=== PATIENT | female | born 1990 | race American Indian/Alaskan Native ===

== ENCOUNTER 2019-04-21 21:37 | Emergency (ER) | payer SELFPAY ==
[2019-04-21] MEDS ORDERED: ATIVAN IM PRN (21:58)
[2019-04-21] MEDS ORDERED: HALDOL IM PRN (21:58)
--- NOTE | 2019-04-21 22:07 | Emergency Department Report ---
ED General Adult HPI - General Chief complaint: Psych Stated complaint: O.D. ETOH Time Seen by Provider: 04/21/19 21:58 Source: EMS (ems notes not available at time of chart dictation), RN notes reviewed Mode of arrival: Stretcher Limitations: Other (intoxication) - History of Present Illness Initial comments: This is a 28-year-old female. Has a history of reported chronic neuropathic pain, on gabapentin, does not know the dose, and depression. Patient brought to the hospital by emergency medical services. Apparently, the patient's mother stated the patient took some pills, but is not sure what she took or how much. The patient states that she wants to sleep, but denies homicidality and suicidality. She also endorses chronic radicular pain in her left lower extremity. Apparently, pill bottles were brought with the patient. They include multiple prescriptions, including Naprosyn, ranitidine, lisinopril, and diclofenac. Ranitidine 2007. lisinopril 2006. Diclofenac 2007. Naprosyn [id number], appears to be current. The patient denies headache, neck pain, chest pain, abdominal pain, shortness of breath. She indicates she is not homicidal or suicidal. She is not sure exactly what time the ingestion took place. Does not know what dose of gabapentin she took. -: Sudden Quality: other Consistency: other Improves with: other Worsens with: other - Related Data Allergies Allergy/AdvReac Type Severity Reaction Status Date / Time No Known Allergies Allergy Verified 04/21/19 21:56 ED Review of Systems ROS: Stated complaint: O.D. ETOH Other details as noted in HPI Constitutional: malaise. denies: fever Eyes: denies: eye discharge ENT: denies: epistaxis Respiratory: denies: cough Cardiovascular: denies: chest pain Musculoskeletal: arthralgia, myalgia Skin: denies: lesions Neurological: paresthesias Psychiatric: depression ED Past Medical Hx - Past Medical History Previous Medical History?: Yes Hx Psychiatric Treatment: Yes (Depression) - Surgical History Past Surgical History?: Yes Additional Surgical History: D & C - Social History Smoking Status: Current Every Day Smoker Substance Use Type: None ED Physical Exam - General Limitations: Other (intoxication) General appearance: alert, appears intoxicated - Head Head exam: Present: atraumatic, normocephalic - Eye Eye exam: Present: normal appearance, EOMI, other (visual acuity intact to fing er counting, color perception, reading at a close distance). Absent: nystagmus - ENT ENT exam: Present: normal exam, normal orophraynx, mucous membranes moist, normal external ear exam - Neck Neck exam: Present: normal inspection, full ROM. Absent: tenderness, meningismus - Respiratory Respiratory exam: Present: normal lung sounds bilaterally. Absent: respiratory distress - Cardiovascular Cardiovascular Exam: Present: regular rate, normal rhythm, normal heart sounds. Absent: bradycardia, tachycardia, irregular rhythm, systolic murmur, diastolic murmur, rubs, gallop - GI/Abdominal GI/Abdominal exam: Present: soft. Absent: distended, tenderness, guarding, rebound, rigid, pulsatile mass - Extremities Exam Extremities exam: Present: normal inspection, full ROM, other (2+ pulses noted in the bilateral upper extremities. There is no long bony tenderness in the bilateral upper extremities). Absent: pedal edema - Back Exam Back exam: Present: normal inspection, full ROM. Absent: tenderness, CVA tenderness (R), CVA tenderness (L), paraspinal tenderness, vertebral tenderness - Neurological Exam Neurological exam: Present: alert, other (Extraocular movements intact. Tongue midline. No facial droop. Facial sensation intact to light touch in the V1, V2, V3 distribution bilaterally. 5 and 5 strength in 4 extremities.. Sensation is intact to light touch in 4 extremities.) - Psychiatric Psychiatric exam: Present: depressed, flat affect - Skin Skin exam: Present: warm, dry, intact, normal color. Absent: rash ED Course Vital Signs 04/21/19 04/21/19 04/22/19 21:39 21:57 00:40 Temperature 98.3 F 98 F Pulse Rate 113 H 75 Respiratory 20 18 17 Rate Blood Pressure 139/77 Blood Pressure 94/47 [Right] O2 Sat by Pulse 99 99 98 Oximetry 04/22/19 00:43 Temperature Pulse Rate 81 Respiratory 15 Rate Blood Pressure Blood Pressure 97/59 [Right] O2 Sat by Pulse 98 Oximetry - Reevaluation(s) Reevaluation #1: 04/21/19 22:23 Differential diagnosis, including not limited to: Overdose, alcohol intoxication, chronic radicular/neuropathic pain, medical clearance for psychiatric placement Assessment and plan: 28-year-old female, clinically intoxicated, no evidence of trauma, with reported history of overdose. States that she wants to go to slee p. Given intoxication, history of depression, desire to "go to sleep", we will place the patient on a 1013, as I am concerned that this may be a gesture for self-harm. Screening laboratory studies, EKG, singing waiter or waitress ordered. Psychiatric consultation has been requested. Patient cannot give an exact time of ingestion, appears to be intoxicated, at risk for aspiration, therefore, in my opinion, not a charcoal candidate. We will observe the patient in for 4-6 hours in the emergency room. Reevaluation #2: 04/21/19 23:47 Family at bedside. They indicate that they're concerned that this might be more than "just a try to go to sleep." Apparently, the patient has been having trouble with alcohol for quite a bit. The family wants the patient to get detox. Patient thus far is noncommittal regarding detox. Laboratory studies reviewed and appreciated. CK 1100 is appreciated. Has normal renal function. Muscular compartments. This does not meet criteria for rhabdomyolysis. The patient IV fluids. We will continue to observe the patient. The patient does not appear to be in any acute distress. Reevaluation #3: 04/22/19 02:07 Resting comfortably, and in no acute distress. Reevaluation #4: 04/22/19 03:26 Patient is observed for a prolonged period of time in this department without clinical decompensation. She appears unremarkable on repeat examination. The patient is medically suitable for psychiatric consultation, placement, evaluation at this time. ED Medical Decision Making - Lab Data Result diagrams: 04/21/19 22:12 04/21/19 22:12 Vital Signs 04/21/19 04/21/19 21:39 21:57 Temperature 98.3 F Pulse Rate 113 H Respiratory 20 18 Rate Blood Pressure 139/77 O2 Sat by Pulse 99 99 Oximetry Labs 04/21/19 04/21/19 04/21/19 22:07 22:07 22:12 WBC RBC Hgb Hct MCV MCH MCHC RDW Plt Count Lymph % (Auto) [place] % (Auto) Eos % (Auto) Baso % (Auto) Lymph # [place] # Eos # Baso # Seg Neutrophils % Seg Neutrophils # Sodium 148 H Potassium 3.7 Chloride 104.1 Carbon Dioxide 20 L Anion Gap 28 BUN 3 L Creatinine 0.8 Estimated GFR > 60 BUN/Creatinine Ratio 4 Glucose 99 Calcium 10.9 H Magnesium Total Creatine Kinase HCG, Qual Urine Color Straw Urine Turbidity Clear Urine pH 7.0 Ur Specific [place] 1.003 Urine Protein <15 mg/dl Urine Glucose (UA) Neg Urine Ketones Tr Urine Blood Lg Urine Nitrite Neg Urine Bilirubin Neg Urine Urobilinogen < 2.0 Ur Leukocyte Esterase Neg Urine WBC (Auto) 1.0 Urine RBC (Auto) 1.0 U Epithel Cells (Auto) 3.0 Urine Mucus Few Urine Opiates Screen Presumptive negative Urine Methadone Screen Presumptive negative Ur Barbiturates Screen Presumptive negative Ur Phencyclidine Scrn Presumptive negative Ur Amphetamines Screen Presumptive negative U Benzodiazepines Scrn Presumptive positive Urine Cocaine Screen Presumptive negative U Marijuana (THC) Screen Presumptive positive Plasma/Serum Alcohol 04/21/19 04/21/19 04/21/19 22:12 22:12 22:12 WBC 11.4 H RBC 4.93 Hgb 14.7 H Hct 43.3 H MCV 88 MCH 30 MCHC 34 RDW 16.9 H Plt Count 360 Lymph % (Auto) 21.9 [place] % (Auto) 6.6 Eos % (Auto) 0.3 Baso % (Auto) 0.8 Lymph # 2.5 [place] # 0.8 Eos # 0.0 Baso # 0.1 Seg Neutrophils % 70.4 H Seg Neutrophils # 8.0 H Sodium Potassium Chloride Carbon Dioxide Anion Gap BUN Creatinine Estimated GFR BUN/Creatinine Ratio Glucose Calcium Magnesium Total Creatine Kinase HCG, Qual Negative Urine Color Urine Turbidity Urine pH Ur Specific [place] Urine Protein Urine Glucose (UA) Urine Ketones Urine Blood Urine Nitrite Urine Bilirubin Urine Urobilinogen Ur Leukocyte Esterase Urine WBC (Auto) Urine RBC (Auto) U Epithel Cells (Auto) Urine Mucus Urine Opiates Screen Urine Methadone Screen Ur Barbiturates Screen Ur Phencyclidine Scrn Ur Amphetamines Screen U Benzodiazepines Scrn Urine Cocaine Screen U Marijuana (THC) Screen Plasma/Serum Alcohol 0.21 H 04/21/19 22:12 WBC RBC Hgb Hct MCV MCH MCHC RDW Plt Count Lymph % (Auto) [place] % (Auto) Eos % (Auto) Baso % (Auto) Lymph # [place] # Eos # Baso # Seg Neutrophils % Seg Neutrophils # Sodium Potassium Chloride Carbon Dioxide Anion Gap BUN Creatinine Estimated GFR BUN/Creatinine Ratio Glucose Calcium Magnesium 2.00 Total Creatine Kinase 1101 H HCG, Qual Urine Color Urine Turbidity Urine pH Ur Specific [place] Urine Protein Urine Glucose (UA) Urine Ketones Urine Blood Urine Nitrite Urine Bilirubin Urine Urobilinogen Ur Leukocyte Esterase Urine WBC (Auto) Urine RBC (Auto) U Epithel Cells (Auto) Urine Mucus Urine Opiates Screen Urine Methadone Screen Ur Barbiturates Screen Ur Phencyclidine Scrn Ur Amphetamines Screen U Benzodiazepines Scrn Urine Cocaine Screen U Marijuana (THC) Screen Plasma/Serum Alcohol - EKG Data -: EKG Interpreted by Me EKG shows normal: sinus rhythm Rate: tachycardia - EKG Data When compared to previous EKG there are: previous EKG unavailable 04/21/19 23:48 Sinus tachycardia. 104 bpm. Normal axis. QTC prolonged. Borderline high left ventricular voltage. This is an abnormal EKG. There is no chest pain. This EKG is not consistent with ST elevation myocardial infarction. Critical care attestation.: If time is entered above; I have spent that time in minutes in the direct care of this critically ill patient, excluding procedure time. ED Disposition Clinical Impression: Alcohol intoxication, Hx of drug overdose, Medical clearance for psychiatric admission Disposition: DC/TX-65 PSY HOSP/PSY UNIT Is pt being admited?: No Does the pt Need Aspirin: No Condition: Good Referrals: JEROD MENDENHALL MD [Primary Care Provider] - 3-5 Days
[2019-04-21 22:25] LABS: Bilirubin,Urine NEG (Negative); Blood,Urine LG (Negative); Color,Urine Straw (Yellow); Mucus,Urine FEW /HPF; Protein,Urine <15 mg/dL mg/dL (Negative); Urobilinogen,Urine < 2.0 mg/dL (<2.0)
[2019-04-21 22:26] LABS: Basophils # (Auto) 0.1 K/mm3 (0.0-0.1); Basophils % (Auto) 0.8 % (0.0-1.8); Eosinophils % (Auto) 0.3 % (0.0-4.3); Hematocrit 43.3 % (30.3-42.9); Hemoglobin 14.7 gm/dl (10.1-14.3); Lymphocytes # (Auto) 2.5 K/mm3 (1.2-5.4); Lymphocytes % (Auto) 21.9 % (13.4-35.0); Mean Corpuscular HGB Conc 34 % (30-34); Mean Corpuscular Volume 88 fl (79-97); Monocytes # (Auto) 0.8 K/mm3 (0.0-0.8); Monocytes % (Auto) 6.6 % (0.0-7.3); Platelet Count 360 K/mm3 (140-440); Red Blood Count 4.93 M/mm3 (3.65-5.03); Red Cell Distribution Width 16.9 % (13.2-15.2)
[2019-04-21 22:32] LABS: Amphetamine Screen,Urine PRESUMPTIVE NEGATIVE; Cocaine Screen,Urine PRESUMPTIVE NEGATIVE; Methadone Screen,Urine PRESUMPTIVE NEGATIVE; Opiate Screen,Urine PRESUMPTIVE NEGATIVE
[2019-04-21 22:38] LABS: BUN/Creatinine Ratio 4; Blood Urea Nitrogen 3 mg/dL (7-17); Calcium 10.9 mg/dL (8.4-10.2); Hemolysis Index 29
[2019-04-21] MEDS ORDERED: NACL 0.9% 1000 ML 2,000 ML IV ONE (22:49)
[2019-04-21 22:50] LABS: Benzodiazepines Screen,Urine PRESUMPTIVE POSITIVE; Cannabinoid Screen,Urine PRESUMPTIVE POSITIVE
[2019-04-21] MEDS ORDERED: D5/0.45NS 1,000 ML IV SCH (23:00)
--- NOTE | 2019-04-22 11:01 | Consultation ---
History of Present Illness - Reason for Consult Consult date: 04/22/19 Reason for consult: Mental Health Evaluation Requesting physician: DAYNA WEINER - Chief Complaint Chief complaint: "I was sleepy" - History of Present Psychiatric Illness 28 y.o. white female who presented to the ER for overdosing on several pills. Today the patient is calm and cooperative during the assessment. She statde that she took "4 gabapentin pills and 1 bp pill" to get sleep. She stated that she had been up for several days thinking about her life stressors (relationship issues and a recent DUI." She acknowledged a previous suicide attempt when she was an adolescent. She stated that she has a hx of depression and took Paxil in the past. She stated that the Paxil was "effective." She is adamant that she didn't try to kill herself prior to her arrival to the ER. She denies SI/HI's and AVH's. She rate her depression "2 or 3" out of 10, with 10 being the worse. She denies a poor appetite. She stated that her alcohol consumption (etoh) has increased because of the stressors she's experiencing. Medications and Allergies Allergies Allergy/AdvReac Type Severity Reaction Status Date / Time No Known Allergies Allergy Verified 04/21/19 21:56 Active Meds: Active Medications Haloperidol Lactate (Haldol) 5 mg IM Q6HR PRN PRN Reason: Agitation Dextrose/Sodium Chloride (D5/0.45ns) 1,000 mls @ 0 mls/hr IV DIRECT ANTWAN Lorazepam (Ativan) 2 mg IM Q4HR PRN PRN Reason: Agitation Past psychiatric history - Past Medical History Past Medical History: other (Yes) Past Surgical History: Other (D and C) - past Psychiatric treatment and history psychiatric treatment history: Hx of depression and anxiety per the patient. Denies a fam psy hx. - Social History Social history: lives with family Mental Status Exam - Vital signs Last Vital Signs Temp 97.6 F 04/22/19 07:53 Pulse 84 04/22/19 07:53 Resp 18 04/22/19 07:53 BP 131/72 04/22/19 07:53 Pulse Ox 97 04/22/19 07:53 - Exam Narrative exam: MSE: Appearance: calm, cooperative Behavior: regular eye contact Speech: regular rate and tone Mood: "okay" Affect: flat Thought Process: circumstantial Thought Content: denies SI/HI's and AVH's Motor Activity: sitting up in bed Cognition: A/O x3 Insight: variable to fair Judgment: variable Results Result Diagrams: 04/21/19 22:12 04/21/19 22:12 Abnormal lab results 04/21/19 04/21/19 04/21/19 Range/Units 22:12 22:12 22:12 WBC (4.5-11.0) K/mm3 Hgb (10.1-14.3) gm/dl Hct (30.3-42.9) % RDW (13.2-15.2) % Seg Neutrophils % (40.0-70.0) % Seg Neutrophils # (1.8-7.7) K/mm3 Sodium 148 H (137-145) mmol/L Carbon Dioxide 20 L (22-30) mmol/L BUN 3 L (7-17) mg/dL Calcium 10.9 H (8.4-10.2) mg/dL Total Creatine Kinase (30-135) units/L Salicylates < 0.3 L (2.8-20.0) mg/dL Acetaminophen < 5.0 L (10.0-30.0) ug/mL Plasma/Serum Alcohol (0-0.07) % 04/21/19 04/21/19 04/21/19 Range/Units 22:12 22:12 22:12 WBC 11.4 H (4.5-11.0) K/mm3 Hgb 14.7 H (10.1-14.3) gm/dl Hct 43.3 H (30.3-42.9) % RDW 16.9 H (13.2-15.2) % Seg Neutrophils % 70.4 H (40.0-70.0) % Seg Neutrophils # 8.0 H (1.8-7.7) K/mm3 Sodium (137-145) mmol/L Carbon Dioxide (22-30) mmol/L BUN (7-17) mg/dL Calcium (8.4-10.2) mg/dL Total Creatine Kinase 1101 H (30-135) units/L Salicylates (2.8-20.0) mg/dL Acetaminophen (10.0-30.0) ug/mL Plasma/Serum Alcohol 0.21 H (0-0.07) % All other labs normal. Assessment and Plan Assessment and plan: Impression: MDD, recurrent. Alcohol Use DO. Cannabis USe DO. Unintentional vs Intentional overdose. Today the patient was calm and cooperative during the assessment. DDx: R/O Bipolar DO, Substance Induced Mood DO Recommendation/Plan: gather collateral information and reevaluate the patient's 2013 in 24 hours. Start Paxil i10 mg PO daily for depression. Discussed possible suicidality/medication induced maxwell with the patient reference Paxil, she verbalized understanding. . Dispo: If the patient's 2013 is rescinded in 24 hours, she can follow up with [facility] for [facility] psy services. Will staff with Dr Fadumo Fernandes.
[2019-04-22] MEDS ORDERED: HABITROL TD ONE (15:35)
[2019-04-22] MEDS: PAXIL PO SCH ×2 (22:05→22:14)
[2019-04-23 08:09] VITALS: BP 91/53
--- NOTE | 2019-04-23 09:44 | Progress Note ---
Subjective - Reason for Consult Consult date: 04/23/19 Reason for consult: Psychiatry follow-up - Chief Complaint Chief complaint: "I've been making terrible choices" 28 y.o. white female who presented to the ER for overdosing on several pills. Today the patient is calm and cooperative during the assessment. She stated that her priority is getting her life in order. Per collateral information from her father Mr Medeiros, who was at the bedside, he stated that the patient was "overwhelmed," but denies that she was trying to kill herself. He did state that she had not slept for 2 or 3 days because of stressors. He stated that she could have went about getting sleep another way. He stated that the patient will be moving in with him when discharged. The patient confirmed that she will be residing with her father. She denies SI/HI's and AVH's. Mental Status Exam - Vital signs Last Vital Signs Temp 98.9 F 04/23/19 08:08 Pulse 65 04/23/19 08:08 Resp 18 04/23/19 08:08 BP 91/53 04/23/19 08:08 Pulse Ox 98 04/23/19 08:08 - Exam Narrative exam: MSE: Appearance: calm, cooperative Behavior: regular eye contact Speech: regular rate and tone Mood: "okay" Affect: congruent to mood Thought Process: logical Thought Content: denies SI/HI's and AVH's Motor Activity: sitting up in bed Cognition: A/O x3 Insight: appropriate Judgment: appropriate Assessment and Plan Impression: MDD, recurrent. Alcohol Use DO. Cannabis USe DO. Unintentional overdose. Today the patient was calm and cooperative during the assessment. The patient is no threat to self. DDx: R/O Bipolar DO, Substance Induced Mood DO Recommendation/Plan: Rescind 1013. Continue Paxil 10 mg PO daily for depression. Discussed possible suicidality/medication induced maxwell with the patient reference Paxil, she verbalized understanding. .Discussed the importance to abstain from recreational drug use and alochol consumption (etoh) with the patient, she verbalized understanding. Dispo: The patient can follow up with [facility] for outpatient psy/rehab services. Will staff with Dr Fadumo Fernandes.
--- NOTE | 2019-04-23 10:29 | Event Note ---
Date: 04/23/19 Patient endorsed no complaints medically at this time. Cleared by the psychiatric team. We will defer to outpatient primary care to continue Paxil medication. Patient counseled to abstain from alcohol consumption. She will be discharged with multivitamin with folic acid, and as stated Librium. She'll need to follow up with a primary care doctor for repeat checkup in the next 5-7 days. Lab Results 04/21/19 04/21/19 04/21/19 Range/Units 22:07 22:07 22:12 WBC (4.5-11.0) K/mm3 RBC (3.65-5.03) M/mm3 Hgb (10.1-14.3) gm/dl Hct (30.3-42.9) % MCV (79-97) fl MCH (28-32) pg MCHC (30-34) % RDW (13.2-15.2) % Plt Count (140-440) K/mm3 Lymph % (Auto) (13.4-35.0) % [place] % (Auto) (0.0-7.3) % Eos % (Auto) (0.0-4.3) % Baso % (Auto) (0.0-1.8) % Lymph # (1.2-5.4) K/mm3 [place] # (0.0-0.8) K/mm3 Eos # (0.0-0.4) K/mm3 Baso # (0.0-0.1) K/mm3 Seg Neutrophils % (40.0-70.0) % Seg Neutrophils # (1.8-7.7) K/mm3 Sodium (137-145) mmol/L Potassium (3.6-5.0) mmol/L Chloride (98-107) mmol/L Carbon Dioxide (22-30) mmol/L Anion Gap mmol/L BUN (7-17) mg/dL Creatinine (0.7-1.2) mg/dL Estimated GFR ml/min BUN/Creatinine Ratio % Glucose (65-100) mg/dL Calcium (8.4-10.2) mg/dL Magnesium (1.7-2.3) mg/dL Total Creatine Kinase (30-135) units/L HCG, Qual (Negative) Urine Color Straw (Yellow) Urine Turbidity Clear (Clear) Urine pH 7.0 (5.0-7.0) Ur Specific [place] 1.003 (1.003-1.030) Urine Protein <15 mg/dl (Negative) mg/dL Urine Glucose (UA) Neg (Negative) mg/dL Urine Ketones Tr (Negative) mg/dL Urine Blood Lg (Negative) Urine Nitrite Neg (Negative) Urine Bilirubin Neg (Negative) Urine Urobilinogen < 2.0 (<2.0) mg/dL Ur Leukocyte Esterase Neg (Negative) Urine WBC (Auto) 1.0 (0.0-6.0) /HPF Urine RBC (Auto) 1.0 (0.0-6.0) /HPF U Epithel Cells (Auto) 3.0 (0-13.0) /HPF Urine Mucus Few /HPF Salicylates < 0.3 L (2.8-20.0) mg/dL Urine Opiates Screen Presumptive negative Urine Methadone Screen Presumptive negative Acetaminophen (10.0-30.0) ug/mL Ur Barbiturates Screen Presumptive negative Ur Phencyclidine Scrn Presumptive negative Ur Amphetamines Screen Presumptive negative U Benzodiazepines Scrn Presumptive positive Urine Cocaine Screen Presumptive negative U Marijuana (THC) Screen Presumptive positive Drugs of Abuse Note Disclamer Plasma/Serum Alcohol (0-0.07) % 04/21/19 04/21/19 04/21/19 Range/Units 22:12 22:12 22:12 WBC (4.5-11.0) K/mm3 RBC (3.65-5.03) M/mm3 Hgb (10.1-14.3) gm/dl Hct (30.3-42.9) % MCV (79-97) fl MCH (28-32) pg MCHC (30-34) % RDW (13.2-15.2) % Plt Count (140-440) K/mm3 Lymph % (Auto) (13.4-35.0) % [place] % (Auto) (0.0-7.3) % Eos % (Auto) (0.0-4.3) % Baso % (Auto) (0.0-1.8) % Lymph # (1.2-5.4) K/mm3 [place] # (0.0-0.8) K/mm3 Eos # (0.0-0.4) K/mm3 Baso # (0.0-0.1) K/mm3 Seg Neutrophils % (40.0-70.0) % Seg Neutrophils # (1.8-7.7) K/mm3 Sodium 148 H (137-145) mmol/L Potassium 3.7 (3.6-5.0) mmol/L Chloride 104.1 (98-107) mmol/L Carbon Dioxide 20 L (22-30) mmol/L Anion Gap 28 mmol/L BUN 3 L (7-17) mg/dL Creatinine 0.8 (0.7-1.2) mg/dL Estimated GFR > 60 ml/min BUN/Creatinine Ratio 4 % Glucose 99 (65-100) mg/dL Calcium 10.9 H (8.4-10.2) mg/dL Magnesium (1.7-2.3) mg/dL Total Creatine Kinase (30-135) units/L HCG, Qual (Negative) Urine Color (Yellow) Urine Turbidity (Clear) Urine pH (5.0-7.0) Ur Specific [place] (1.003-1.030) Urine Protein (Negative) mg/dL Urine Glucose (UA) (Negative) mg/dL Urine Ketones (Negative) mg/dL Urine Blood (Negative) Urine Nitrite (Negative) Urine Bilirubin (Negative) Urine Urobilinogen (<2.0) mg/dL Ur Leukocyte Esterase (Negative) Urine WBC (Auto) (0.0-6.0) /HPF Urine RBC (Auto) (0.0-6.0) /HPF U Epithel Cells (Auto) (0-13.0) /HPF Urine Mucus /HPF Salicylates (2.8-20.0) mg/dL Urine Opiates Screen Urine Methadone Screen Acetaminophen < 5.0 L (10.0-30.0) ug/mL Ur Barbiturates Screen Ur Phencyclidine Scrn Ur Amphetamines Screen U Benzodiazepines Scrn Urine Cocaine Screen U Marijuana (THC) Screen Drugs of Abuse Note Plasma/Serum Alcohol 0.21 H (0-0.07) % 04/21/19 04/21/19 04/21/19 Range/Units 22:12 22:12 22:12 WBC 11.4 H (4.5-11.0) K/mm3 RBC 4.93 (3.65-5.03) M/mm3 Hgb 14.7 H (10.1-14.3) gm/dl Hct 43.3 H (30.3-42.9) % MCV 88 (79-97) fl MCH 30 (28-32) pg MCHC 34 (30-34) % RDW 16.9 H (13.2-15.2) % Plt Count 360 (140-440) K/mm3 Lymph % (Auto) 21.9 (13.4-35.0) % [place] % (Auto) 6.6 (0.0-7.3) % Eos % (Auto) 0.3 (0.0-4.3) % Baso % (Auto) 0.8 (0.0-1.8) % Lymph # 2.5 (1.2-5.4) K/mm3 [place] # 0.8 (0.0-0.8) K/mm3 Eos # 0.0 (0.0-0.4) K/mm3 Baso # 0.1 (0.0-0.1) K/mm3 Seg Neutrophils % 70.4 H (40.0-70.0) % Seg Neutrophils # 8.0 H (1.8-7.7) K/mm3 Sodium (137-145) mmol/L Potassium (3.6-5.0) mmol/L Chloride (98-107) mmol/L Carbon Dioxide (22-30) mmol/L Anion Gap mmol/L BUN (7-17) mg/dL Creatinine (0.7-1.2) mg/dL Estimated GFR ml/min BUN/Creatinine Ratio % Glucose (65-100) mg/dL Calcium (8.4-10.2) mg/dL Magnesium 2.00 (1.7-2.3) mg/dL Total Creatine Kinase 1101 H (30-135) units/L HCG, Qual Negative (Negative) Urine Color (Yellow) Urine Turbidity (Clear) Urine pH (5.0-7.0) Ur Specific [place] (1.003-1.030) Urine Protein (Negative) mg/dL Urine Glucose (UA) (Negative) mg/dL Urine Ketones (Negative) mg/dL Urine Blood (Negative) Urine Nitrite (Negative) Urine Bilirubin (Negative) Urine Urobilinogen (<2.0) mg/dL Ur Leukocyte Esterase (Negative) Urine WBC (Auto) (0.0-6.0) /HPF Urine RBC (Auto) (0.0-6.0) /HPF U Epithel Cells (Auto) (0-13.0) /HPF Urine Mucus /HPF Salicylates (2.8-20.0) mg/dL Urine Opiates Screen Urine Methadone Screen Acetaminophen (10.0-30.0) ug/mL Ur Barbiturates Screen Ur Phencyclidine Scrn Ur Amphetamines Screen U Benzodiazepines Scrn Urine Cocaine Screen U Marijuana (THC) Screen Drugs of Abuse Note Plasma/Serum Alcohol (0-0.07) % Vital Signs 04/21/19 04/21/19 04/22/19 21:39 21:57 00:40 Temperature 98.3 F 98 F Pulse Rate 113 H 75 Respiratory 20 18 17 Rate Blood Pressure 139/77 Blood Pressure 94/47 [Right] O2 Sat by Pulse 99 99 98 Oximetry 04/22/19 04/22/19 04/22/19 00:43 04:57 06:34 Temperature Pulse Rate 81 87 Respiratory 15 15 Rate Blood Pressure 92/51 90/49 Blood Pressure 97/59 [Right] O2 Sat by Pulse 98 95 96 Oximetry 04/22/19 04/22/19 04/22/19 07:53 14:08 20:06 Temperature 97.6 F 98.7 F 98.2 F Pulse Rate 84 66 60 Respiratory 18 18 18 Rate Blood Pressure Blood Pressure 131/72 107/51 109/62 [Right] O2 Sat by Pulse 97 100 100 Oximetry 04/23/19 04/23/19 01:36 08:08 Temperature 98.5 F 98.9 F Pulse Rate 64 65 Respiratory 18 18 Rate Blood Pressure Blood Pressure 93/58 91/53 [Right] O2 Sat by Pulse 99 98 Oximetry
== END 2019-04-23 11:07 | disposition home or self-care (01) ==
LOC: EDBD 21:37 → ED 21:37 → EEVIPCON 21:37 → ED 04-23 11:07
DX: M79.662 Pain in left lower leg (principal); F10.129 Alcohol abuse with intoxication, unspecified; F32.9 Major depressive disorder, single episode, unspecified; F17.200 Nicotine dependence, unspecified, uncomplicated; F12.10 Cannabis abuse, uncomplicated; Z86.59 Personal history of other mental and behavioral disorders; Z87.898 Personal history of other specified conditions; Z98.890 Other specified postprocedural states
CPT/HCPCS: 36415; 80048; 80307; 81001; 82550; 83735; 84703; 85025; 93005; 93010; G0480; J7030; 80320